=== PATIENT | female | born 1950 | race Caucasian/White ===

== ENCOUNTER → 2018-05-04 | Outpatient (CLI) | payer MEDICARE, OTHER ==
[~2018-05-04] MED LIST: ALBU8.5H8 INH; ASPI-496 PO; ATOR40TA78 PO; BUDE10.2 INH; CHOL100011 PO; ERGO500017 PO; HYDR-3240 PO; HYDR25TA6 PO; IPRA0.2S35 INH; LOSA25TA6 PO; PROP20TA PO; TIOT18CA INH
== END | disposition home or self-care (01) ==
LOC: CFH 12:10
PROVIDERS: ATTEND Internal Medicine
DX: R91.1 Solitary pulmonary nodule (principal); J44.9 Chronic obstructive pulmonary disease, unspecified
CPT/HCPCS: 71250

== ENCOUNTER → 2018-05-28 | Outpatient (CLI) | payer MEDICARE, OTHER | END | disposition home or self-care (01) | LOC: PETCFH 08:47 | PROVIDERS: ATTEND Nurse Practitioner | DX: Q85.9 Phakomatosis, unspecified (principal); R91.1 Solitary pulmonary nodule | CPT/HCPCS: 78815; A9552 ==

== ENCOUNTER 2018-10-26 11:59 | Outpatient (CLI) | payer MEDICARE, OTHER ==
[~2018-10-26 11:59] MED LIST changes: +LOSA25TA25 PO; -LOSA25TA6 PO
[2018-10-26] MEDS ORDERED: SINCALIDE (KINEVAC) 5 MCG ONE (14:26)
== END 2018-10-26 23:59 | disposition home or self-care (01) ==
LOC: RAD 11:59
DX: R10.11 Right upper quadrant pain (principal)
CPT/HCPCS: 78227; A9537; J2805

== ENCOUNTER 2019-01-08 09:55 | Inpatient (IN) | payer MEDICARE, OTHER ==
[~2019-01-08] VITALS: Ht 167.6 cm; Wt 100.0 kg
[~2019-01-08 09:55] MED LIST changes: +BACITRACIN OINT 500U/GM, 15 GM ONE; +CALC0.5C9 PO; +CYCL-259 PO; +DICL50TA2 PO; +FLUT1BLS3 IH; +FURO-93 PO; +LIDOCAINE 1%-EPI 1:100K, 50ML ONE; +NEOSPORIN OINT. PKT 1 PACKET ONE; +OMEP20TA62 PO; +ONDA8TAB9 PO; +OXYC1TAB7 PO; +POTA10TA5 PO; +TRAM50TA2 PO
[2019-01-08] MEDS ORDERED: LACTATED RINGERS 1,000 ML IV SCH (10:13)
[2019-01-08] MEDS ORDERED: GABAPENTIN 300 MG CAPSULE PO ONE (10:30)
[2019-01-08] MEDS ORDERED: ACETAMINOPHEN 500 MG TABLET PO ONE (10:30)
[2019-01-08] MEDS ORDERED: MIDAZOLAM 1 MG/ML, 2ML ONE (11:33)
[2019-01-08] MEDS ORDERED: FENTANYL PF 250 MCG/5ML ONE (11:33)
[2019-01-08 11:56] LABS: ALBUMIN 3.4 g/dL (3.4-5.0); ANION GAP 7 mmol/L (5-15); CALCIUM 9.6 mg/dL (8.5-10.1); CHLORIDE 105 mmol/L (98-107)
[2019-01-08] MEDS ORDERED: LABETALOL 5MG/ML, 20ML IV PRN (12:00)
[2019-01-08] MEDS ORDERED: PROMETHAZINE 25 MG/ML, 1ML IV PRN (12:00)
[2019-01-08] MEDS ORDERED: MEPERIDINE/PF 25MG/0.5ML IVPush PRN (12:00)
[2019-01-08] MEDS ORDERED: OXYcodone 5 MG/5 ML ORAL.SOL UDC PO PRN (12:00)
[2019-01-08] MEDS ORDERED: hydrALAzine 20 MG/ML, 1ML IV PRN (12:00)
[2019-01-08] MEDS ORDERED: HALOPERIDOL 5 MG/ML IV PRN (12:00)
[2019-01-08] MEDS ORDERED: METOPROLOL 1 MG/ML, 5ML IV PRN (12:00)
[2019-01-08] MEDS ORDERED: PROCHLORPERAZINE 5 MG/ML, 2ML IV PRN (12:00)
[2019-01-08] MEDS ORDERED: HYDROmorphone 2 MG/ML, 1ML IVPush PRN (12:00)
[2019-01-08] MEDS ORDERED: ALBUTEROL/IPRATROPIUM 2.5MG/0.5MG, 3 ML NPPB PRN (12:00)
[2019-01-08 12:01] LABS: ALANINE AMINOTRANSFERASE 39 U/L (12-78); ALKALINE PHOSPHATASE 73 U/L (45-117); BILIRUBIN,TOTAL 0.8 mg/dL (0.2-1.0); CREATININE 0.98 mg/dL (0.55-1.02)
[2019-01-08] MEDS ORDERED: PHENYLEPHRINE 10 MG/ML ONE (12:50)
[2019-01-08] MEDS ORDERED: CEFAZOLIN 1,000 MG ONE (12:50)
[2019-01-08] MEDS ORDERED: LIDOCAINE 2% 100MG/5ML SYRINGE ONE (12:50)
[2019-01-08] MEDS ORDERED: ROCURONIUM 10MG/ML,5ML ONE (12:50)
[2019-01-08] MEDS ORDERED: ALBUTEROL SULFATE 200 PUFFS/8.5 GR INH ONE (12:50)
[2019-01-08] MEDS ORDERED: PROPOFOL 10 MG/ML, 20ML ONE (12:50)
[2019-01-08] MEDS ORDERED: CALCIUM GLUCONATE 4.6 MEQ/10 ML ONE ×2 (12:50→13:52)
[2019-01-08] MEDS ORDERED: MAGNESIUM SULFATE 8 MEQ/2 ML, 2ML ONE (12:50)
[2019-01-08] MEDS ORDERED: EPHEDRINE 50 MG/ML, 1ML ONE (12:50)
[2019-01-08] MEDS ORDERED: SUCCINYLCHOLINE 20 MG/ML, 10ML ONE (12:50)
[2019-01-08] MEDS ORDERED: BACITRACIN OINT 500U/GM, 15 GM ONE (13:39)
[2019-01-08] MEDS ORDERED: MAGNESIUM SULFATE 1 GM/2 ML ONE (13:48)
[2019-01-08] MEDS ORDERED: FENTANYL PF 100 MCG/2ML ONE ×3 (14:19→16:06)
[2019-01-08] MEDS ORDERED: METOPROLOL 1 MG/ML, 5ML ONE (15:26)
[2019-01-08] MEDS: METOPROLOL 1 MG/ML, 5ML IVPush ONE ×2 (15:31→15:52)
[2019-01-08] MEDS ORDERED: ALBUTEROL SULFATE 2.5 MG/3 ML ONE (15:51)
[2019-01-08] MEDS ORDERED: OXYcodone 5 MG/5 ML ORAL.SOL UDC ONE (16:06)
[2019-01-08] MEDS: FENTANYL PF 100 MCG/2ML IV PRN ×2 (16:19→16:40)
[2019-01-08] MEDS ORDERED: FUROSEMIDE 20 MG TABLET PO PRN (16:30)
[2019-01-08] MEDS ORDERED: HEPARIN 5,000 UNITS/ML, 1ML SQ SCH (16:30)
[2019-01-08] MEDS ORDERED: morphine SULFATE 10 MG/ML, 1ML IVPush PRN (16:30)
[2019-01-08] MEDS ORDERED: LABETALOL 5 MG/ML SYRINGE IVPush PRN (16:30)
[2019-01-08] MEDS ORDERED: ONDANSETRON 2MG/ML, 2ML IVPush PRN (16:30)
[2019-01-08] MEDS ORDERED: CALCIUM CARBONATE 500 MG TABLET PO SCH (17:00)
[2019-01-08] MEDS: CALCIUM CARBONATE 500 MG TAB.CHEW PO SCH (17:00)
[2019-01-08 17:07] LABS: MEAN CORPUSCULAR HEMOGLOBIN 31.3 pg (27.0-34.8); MEAN CORPUSCULAR HGB CONC 32.9 g/dL (32.4-35.8); MEAN CORPUSCULAR VOLUME 95.1 fL (80-100); MEAN PLATELET VOLUME 7.3 fL (7.4-10.4); PLATELET COUNT 483 x10^3/uL (130-400); RED CELL DISTRIBUTION WIDTH 14.7 % (9.6-15.2)
[2019-01-08 17:13] LABS: MD YES
[2019-01-08 17:23] LABS: TROPONIN I < 0.015 ng/mL (0.000-0.045)
[2019-01-08] MEDS ORDERED: ONDANSETRON 2MG/ML, 2ML IV PRN (17:30)
[2019-01-08] MEDS: NICOTINE 14MG/24 HR PATCH.TD24 TD SCH (17:30)
[2019-01-08] MEDS ORDERED: POTASSIUM CHLORIDE 20 MEQ in D5%-0.45% NACL 1,000 ML IV SCH (17:30)
[2019-01-08] MEDS ORDERED: morphine SULFATE 10 MG/ML, 1ML IV PRN (17:30)
[2019-01-08] MEDS: GUAIFENESIN 200 MG TABLET PO SCH ×2 (17:46→20:59)
[2019-01-08 17:54] LABS: BASOS#(MANUAL) 0.13 x10^3/uL (0-0.1); BASOS% (MANUAL) 1 % (0-1); LYMPH#(MANUAL) 1.06 x10^3/uL (1-3.4); LYMPHS% (MANUAL) 8 % (22-44); MONOS#(MANUAL) 0.13 x10^3/uL (0.3-2.7); MONOS% (MANUAL) 1 % (2-9); SEG#(MANUAL) 11.88 x10^3/uL (1.8-6.8); SEGS% (MANUAL) 90 % (42-75)
[2019-01-08 17:55] LABS: <PLATELET ESTIMATE> INCREASED; <PLT MORPHOLOGY> NORMAL PLT MORPH; <RBC MORPHOLOGY> NORMAL
[2019-01-08] MEDS ORDERED: POTASSIUM CHLORIDE 10 MEQ TABLET.ER PO PRN (18:00)
[2019-01-08] MEDS ORDERED: IPRATROPIUM 0.5 MG/2.5 ML INHA NPPB PRN (18:00)
[2019-01-08] MEDS ORDERED: OXYcodone/APAP 5/325MG TABLET PO PRN (18:00)
[2019-01-08] MEDS ORDERED: ONDANSETRON ODT 8 MG PO PRN (18:00)
[2019-01-08] MEDS: [UNRECOGNIZED DRUG - REMARK] MC SCH ×2 (18:30→22:30)
[2019-01-08] MEDS ORDERED: CYCLOBENZAPRINE 10 MG TABLET ONE (18:31)
[2019-01-08] MEDS: OXYcodone/APAP 5/325MG TABLET PO PRN (18:34)
[2019-01-08 19:11] VITALS: BP 138/78
[2019-01-08] MEDS ORDERED: DICLOFENAC POTASSIUM 50 MG HOMEMEDPO SCH (21:00)
[2019-01-08] MEDS ORDERED: LOSARTAN 25MG TABLET PO SCH (21:00)
[2019-01-08] MEDS ORDERED: PROPRANOLOL 20 MG TABLET PO SCH (21:00)
[2019-01-08] MEDS: BACITRACIN OINT 500U/GM, 15 GM TP SCH (21:00)
[2019-01-08] MEDS ORDERED: CYCLOBENZAPRINE 10 MG TABLET PO PRN (21:00)
[2019-01-08] MEDS ORDERED: CALCITRIOL 0.5 MCG CAPSULE PO SCH (21:00)
[2019-01-08] MEDS: DICLOFENAC SODIUM 50 MG HOMEMEDPO SCH (22:30)
[2019-01-08] MEDS: PROPRANOLOL 10 MG HOMEMEDPO SCH (22:30)
[2019-01-08] MEDS ORDERED: CALCITRIOL 0.25 MCG HOMEMEDPO SCH (22:30)
[2019-01-08] MEDS: LOSARTAN 25 MG HOMEMEDPO SCH (22:30)
[2019-01-08] MEDS ORDERED: CYCLOBENZAPRINE HOMEMEDPO PRN (22:30)
[2019-01-08 22:58] LABS: TROPONIN I < 0.015 ng/mL (0.000-0.045)
[2019-01-08] MEDS: CALCITRIOL MC SCH (23:30)
[2019-01-09] MEDS ORDERED: CALCITRIOL 0.25 MCG HOMEMEDPO SCH (00:06)
[2019-01-09] MEDS ORDERED: DICL50TA4 PO (01:32)
[2019-01-09 02:18] VITALS: BP 116/59
[2019-01-09] MEDS: OXYcodone/APAP 5/325MG TABLET PO PRN ×2 (02:28→12:29)
[2019-01-09] MEDS: [UNRECOGNIZED DRUG - REMARK] MC SCH ×2 (02:30→06:30)
[2019-01-09] MEDS: ALBUTEROL HOMEINH PRN ×3 (02:47→20:50)
[2019-01-09 04:53] LABS: BASOPHILS # (AUTO) 0.19 x10^3/uL (0-0.1); BASOPHILS % (AUTO) 1 % (0-1); EOSINOPHILS # (AUTO) 0.01 x10^3/uL (0-0.4); EOSINOPHILS % (AUTO) 0 % (1-7); LYMPHOCYTES # (AUTO) 1.74 x10^3/uL (1-3.4); LYMPHOCYTES % (AUTO) 13 % (22-44); MD NO; MEAN CORPUSCULAR HEMOGLOBIN 31.7 pg (27.0-34.8); MEAN CORPUSCULAR HGB CONC 33.1 g/dL (32.4-35.8); MEAN CORPUSCULAR VOLUME 95.8 fL (80-100); MEAN PLATELET VOLUME 7.7 fL (7.4-10.4); MONOCYTES # (AUTO) 1.07 x10^3/uL (0.2-0.8); MONOCYTES % (AUTO) 8 % (2-9); NEUTROPHILS # (AUTO) 10.73 x10^3/uL (1.8-6.8); NEUTROPHILS % (AUTO) 78 % (42-75); PLATELET COUNT 452 x10^3/uL (130-400); RED BLOOD COUNT 4.27 x10^6/uL (3.82-5.3); RED CELL DISTRIBUTION WIDTH 14.7 % (9.6-15.2)
[2019-01-09 05:03] LABS: ALBUMIN 3.1 g/dL (3.4-5.0); ANION GAP 4 mmol/L (5-15); CALCIUM 8.8 mg/dL (8.5-10.1); CHLORIDE 106 mmol/L (98-107)
[2019-01-09 05:10] LABS: ALANINE AMINOTRANSFERASE 30 U/L (12-78); ALKALINE PHOSPHATASE 63 U/L (45-117); BILIRUBIN,TOTAL 0.3 mg/dL (0.2-1.0); CREATININE 0.79 mg/dL (0.55-1.02); TOTAL PROTEIN 6.4 g/dL (6.4-8.2); TROPONIN I < 0.015 ng/mL (0.000-0.045)
[2019-01-09] MEDS: LEVOTHYROXINE 75 MCG TABLET HOMEMEDPO SCH ×2 (05:38→08:37)
[2019-01-09] MEDS: GUAIFENESIN 200 MG TABLET PO SCH ×4 (05:39→20:35)
[2019-01-09 06:31] VITALS: BP 120/68
[2019-01-09] MEDS ORDERED: OMEPRAZOLE 20 MG CAPSULE.DR PO SCH (07:30)
[2019-01-09] MEDS: CALCITRIOL MC SCH (07:30)
[2019-01-09] MEDS: CALCIUM CARBONATE 500 MG TAB.CHEW PO SCH ×3 (08:37→16:54)
[2019-01-09] MEDS: BACITRACIN OINT 500U/GM, 15 GM TP SCH ×2 (08:37→20:38)
[2019-01-09] MEDS: DICLOFENAC SODIUM 50 MG HOMEMEDPO SCH ×2 (08:38→20:37)
[2019-01-09] MEDS: OMEPRAZOLE 20 MG HOMEMEDPO SCH ×2 (08:38→08:40)
[2019-01-09] MEDS: HYDROCHLOROTHIAZIDE 25 MG HOMEMEDPO SCH (08:39)
[2019-01-09] MEDS: PROPRANOLOL 10 MG HOMEMEDPO SCH ×2 (08:39→20:36)
[2019-01-09] MEDS: Fluticasone/Umeclidin/Vilanter (Trelegy Ellipta 100-62.5-25) IH SCH (08:40)
[2019-01-09] MEDS ORDERED: HYDROCHLOROTHIAZIDE 25 MG TABLET PO SCH (09:00)
[2019-01-09] MEDS ORDERED: ASPIRIN 81 MG TABLET EC PO SCH (09:00)
[2019-01-09] MEDS ORDERED: POTASSIUM CHLORIDE 10 MEQ TABLET.ER PO PRN (09:00)
[2019-01-09] MEDS ORDERED: FUROSEMIDE 20 MG TABLET PO PRN (09:00)
[2019-01-09] MEDS ORDERED: CALCITRIOL 0.5 MCG HOMEMEDPO SCH (09:13)
[2019-01-09 10:35] LABS: CALCIUM 9.1 mg/dL (8.5-10.1)
[2019-01-09 10:38] LABS: TROPONIN I < 0.015 ng/mL (0.000-0.045)
[2019-01-09] MEDS: ALBUTEROL/IPRATROPIUM 2.5MG/0.5MG, 3 ML HHN SCH ×3 (11:00→23:00)
[2019-01-09 13:07] VITALS: BP 120/70
[2019-01-09] MEDS ORDERED: ALBUTEROL/IPRATROPIUM 2.5MG/0.5MG, 3 ML NPPB PRN (15:00)
[2019-01-09] MEDS ORDERED: BUDESONIDE 0.5 MG/2 ML INHA NPPB PRN (15:00)
[2019-01-09] MEDS: NICOTINE 14MG/24 HR PATCH.TD24 TD SCH (16:01)
[2019-01-09 20:15] VITALS: BP 129/65
[2019-01-09] MEDS: LOSARTAN 25 MG HOMEMEDPO SCH (20:37)
[2019-01-10 01:23] VITALS: BP 154/83
[2019-01-10] MEDS: ALBUTEROL/IPRATROPIUM 2.5MG/0.5MG, 3 ML HHN SCH ×2 (02:23→07:36)
[2019-01-10] MEDS: OXYcodone/APAP 5/325MG TABLET PO PRN ×2 (02:46→12:44)
[2019-01-10] MEDS: GUAIFENESIN 200 MG TABLET PO SCH ×2 (05:52→12:44)
[2019-01-10] MEDS: ALBUTEROL HOMEINH PRN (05:53)
[2019-01-10 06:41] VITALS: BP 156/65
[2019-01-10] MEDS: CALCIUM CARBONATE 500 MG TAB.CHEW PO SCH ×2 (07:34→12:44)
[2019-01-10] MEDS: OMEPRAZOLE 20 MG HOMEMEDPO SCH (07:35)
[2019-01-10] MEDS: LEVOTHYROXINE 75 MCG TABLET HOMEMEDPO SCH (07:35)
[2019-01-10] MEDS: BACITRACIN OINT 500U/GM, 15 GM TP SCH (07:35)
[2019-01-10] MEDS: DICLOFENAC SODIUM 50 MG HOMEMEDPO SCH (07:36)
[2019-01-10] MEDS: PROPRANOLOL 10 MG HOMEMEDPO SCH (07:36)
[2019-01-10] MEDS: HYDROCHLOROTHIAZIDE 25 MG HOMEMEDPO SCH (07:36)
[2019-01-10] MEDS: Fluticasone/Umeclidin/Vilanter (Trelegy Ellipta 100-62.5-25) IH SCH (07:36)
[2019-01-10] MEDS ORDERED: CALCITRIOL 0.25 MCG HOMEMEDPO SCH (09:00)
[2019-01-10] MEDS ORDERED: GUAI200T3 PO (10:12)
[2019-01-10] MEDS ORDERED: CALCITRIOL HOMEMEDPO (10:12)
[2019-01-10] MEDS ORDERED: PRED20TA PO (10:12)
[2019-01-10] MEDS ORDERED: LEVO75TA HOMEMEDPO (10:12)
[2019-01-10] MEDS ORDERED: CALC200T24 PO (10:12)
[2019-01-10] MEDS ORDERED: CALC0.25 PO (10:42)
[2019-01-10] MEDS ORDERED: HYDR-3237 PO (11:14)
== END 2019-01-10 12:57 | disposition home or self-care (01) | DRG 981 ==
LOC: OUT 09:55 → ORIP 16:21 → OBSVTOIN 16:21 → 5SO 17:01
PROVIDERS: ADMIT Otolaryngology; ATTEND Otolaryngology
PROC: 0GTK0ZZ Resection of Thyroid Gland, Open Approach (ICD-10-PCS; principal; 2019-01-08 12:30)
DX: I97.191 Other postprocedural cardiac functional disturbances following other surgery (principal); J96.01 Acute respiratory failure with hypoxia; J44.1 Chronic obstructive pulmonary disease with (acute) exacerbation; E21.3 Hyperparathyroidism, unspecified; E06.5 Other chronic thyroiditis; Y83.6 Removal of other organ (partial) (total) as the cause of abnormal reaction of the patient, or of later complication, without mention of misadventure at the time of the procedure; Y92.238 Other place in hospital as the place of occurrence of the external cause; I44.7 Left bundle-branch block, unspecified; E66.01 Morbid (severe) obesity due to excess calories; F17.210 Nicotine dependence, cigarettes, uncomplicated; M54.9 Dorsalgia, unspecified; R00.0 Tachycardia, unspecified; R60.0 Localized edema; G47.33 Obstructive sleep apnea (adult) (pediatric); G89.29 Other chronic pain; I10 Essential (primary) hypertension; Z66 Do not resuscitate; Z79.82 Long term (current) use of aspirin; Z79.899 Other long term (current) drug therapy; I25.2 Old myocardial infarction; Z88.8 Allergy status to other drugs, medicaments and biological substances; Z68.35 Body mass index [BMI] 35.0-35.9, adult; Z99.81 Dependence on supplemental oxygen; Z71.3 Dietary counseling and surveillance
CPT/HCPCS: 36415; 71045; 80053; 82310; 83880; 84443; 84484; 85025; 88307; 93005; 93306; 94640; C1729; G0378; J0690; J2250; J2704; J3010; J3475; J3480; J7620; C1760; J0330; J0610; J2370; J7120; J7512

== ENCOUNTER 2019-03-04 09:40 | Observation (INO) | payer MEDICARE, OTHER ==
[~2019-03-04] VITALS: Ht 167.6 cm; Wt 107.9 kg
[2019-03-06 06:35] VITALS: BP 148/82
== END 2019-03-06 11:31 | disposition home or self-care (01) ==
LOC: OUT 09:40 → 4NOR 14:00 → OUT 14:15 → 4NOR 16:16 → DCLOUNGE 03-06 11:22
PROVIDERS: ADMIT Surgery; ATTEND Surgery
DX: I70.211 Atherosclerosis of native arteries of extremities with intermittent claudication, right leg (principal); Z91.041 Radiographic dye allergy status; S81.801D Unspecified open wound, right lower leg, subsequent encounter; I44.7 Left bundle-branch block, unspecified
CPT/HCPCS: 11043; 36415; 80053; 85025; 87070; 87075; 87102; 87205; 93005; 97161; 97605; G0378; J0690; J1100; J1170; J1644; J1885; J2405; J2704; J3010